=== PATIENT | female | born 1955 | race Caucasian/White ===

== ENCOUNTER 2017-12-13 13:34 | Emergency (ER) | payer OTHER ==
[~2017-12-13] VITALS: Ht 162.6 cm; Wt 69.4 kg
[2017-12-13 13:54] VITALS: BP_SYST 153
--- NOTE | 2017-12-13 13:54 | NUR ---
Placed in room 05 . Placed on ekg monitor tech, blood pressure machine and pulse oximeter. To gown for exam. Side rails up.
--- NOTE | 2017-12-13 13:55 | NUR ---
ER at bedside examining patient.
[2017-12-13] MEDS ORDERED: ALPRAZolam 0.25 MG TABLET PO ONE (14:00)
[2017-12-13] MEDS ORDERED: cloNIDine HCL 0.1 MG TABLET PO ONE (14:00)
--- NOTE | 2017-12-13 14:00 | NUR ---
Pt brought in via [facility], for high blood pressure. Pt states that she was at work when she began to feel dizzy and her coworkers checked her BP which showed that it was high. Pt also states that she has not been taking her BP meds. Pt AOX4, speaking full sentences, ambulatory, denies chest pain or sob.
--- NOTE | 2017-12-13 14:48 | NUR ---
Patient given written and verbal discharge instructions and verbalizes understanding. ER MD discussed with patient the results and treatment provided. Patient in stable condition. ID arm band removed. Rx of metoprolol given. Patient educated on pain management and to follow up with PMD. Pain Scale 0. Opportunity for questions provided and answered.
[2017-12-13 14:52] VITALS: BP_SYST 123
== END 2017-12-13 14:48 | disposition home or self-care (01) ==
LOC: SED 13:34
DX: F41.9 Anxiety disorder, unspecified (principal); I10 Essential (primary) hypertension
CPT/HCPCS: 99283